=== PATIENT | female | born 1990 | race Caucasian/White ===

== ENCOUNTER 2021-10-14 16:17 | Emergency (ER) | payer OTHER ==
[~2021-10-14] VITALS: Ht 177.8 cm; Wt 86.6 kg
[2021-10-14] MEDS ORDERED: CIPRODEX OTIC7.5 ML OT (16:52)
== END 2021-10-14 17:00 | disposition home or self-care (01) ==
LOC: ER 16:33
DX: H60.92 Unspecified otitis externa, left ear (principal); J06.9 Acute upper respiratory infection, unspecified; R50.9 Fever, unspecified; R05.9 Cough, unspecified; Z20.822 Contact with and (suspected) exposure to COVID-19
CPT/HCPCS: 99283; U0002